=== PATIENT | female | born 1985 | race Caucasian/White ===

== ENCOUNTER 2018-01-25 21:55 | Emergency (ER) | payer SELFPAY ==
[2018-01-25] MEDS ORDERED: ENOXAPARIN SODIUM INJ 120 MG/0.8 ML DISP.SYRIN SUBCUT ONE (23:00)
--- NOTE | 2018-01-25 23:04 | ER Document Report ---
ED Extremity Problem, Lower - General Chief Complaint: Feet Swelling Stated Complaint: SWOLLEN L FOOT Time Seen by Provider: 01/25/18 22:54 Notes: Patient is a 32 year old female that comes to the ED for chief complaint of left leg and foot swelling. She states her left calf feels very tight. She states that she just got back from a 9 hour car ride about 4 days ago, she has never had a DVT in the past, she denies any injury to the area. She is on Depo- Provera shot, not on estrogen. She denies smoking. She denies personal or family history of DVT. TRAVEL OUTSIDE OF THE [place] IN LAST 30 DAYS: No - Related Data Allergies/Adverse Reactions: ibuprofen [Ibuprofen] Allergy (Verified 03/31/16 23:26) acetaminophen [From Percocet] Adverse Reaction (Verified 03/31/16 23:26) oxycodone HCl [From Percocet] Adverse Reaction (Verified 03/31/16 23:26) Past Medical History - General Information source: Patient - Social History Smoking Status: Former Smoker Chew tobacco use (# tins/day): No Frequency of alcohol use: None Drug Abuse: None Lives with: Family Family History: Hyperlipidemia, Hypertension, Malignancy, Thyroid Disfunction Patient has suicidal ideation: No Patient has homicidal ideation: No - Past Medical History Cardiac Medical History: Reports: Hx Hypercholesterolemia Pulmonary Medical History: Reports: Hx Asthma, Hx Bronchitis Neurological Medical History: Reports: Hx Migraine Renal/ Medical History: Reports: Hx Kidney Stones. Denies: Hx Peritoneal Dialysis Malignancy Medical History: Reports: Hx Cervical Cancer - Patient states, Hx Ovarian Cancer - Patient states Musculoskeltal Medical History: Reports Hx Musculoskeletal Deformity, Reports Hx Musculoskeletal Trauma Psychiatric Medical History: Reports: Hx Anxiety, Hx Bipolar Disorder, Hx Borderline Personality Disorder, Hx Depression, Hx Obsessive Compulsive Disorder Traumatic Medical History: Reports: Hx Fractures Surgical Hx: Negative - Immunizations Immunizations up to date: Yes Hx Diphtheria, Pertussis, Tetanus Vaccination: Yes Review of Systems - Review of Systems Constitutional: No symptoms reported EENT: No symptoms reported Cardiovascular: See HPI Respiratory: No symptoms reported Gastrointestinal: No symptoms reported Genitourinary: No symptoms reported Female Genitourinary: No symptoms reported Musculoskeletal: See HPI Skin: No symptoms reported Hematologic/Lymphatic: See HPI Neurological/Psychological: No symptoms reported Physical Exam - Vital signs Vitals: Temp Pulse Resp BP Pulse Ox 98.2 F 85 18 135/82 H 99 01/25/18 22:28 01/25/18 22:28 01/25/18 22:28 01/25/18 22:28 01/25/18 22:28 Interpretation: Normal - General General appearance: Appears well, Alert - HEENT Head: Normocephalic, Atraumatic Eyes: Normal Pupils: PERRL - Respiratory Respiratory status: No respiratory distress Chest status: Nontender Breath sounds: Normal Chest palpation: Normal - Cardiovascular Rhythm: Regular Heart sounds: Normal auscultation Murmur: No - Abdominal Inspection: Normal Distension: No distension Bowel sounds: Normal Tenderness: Nontender Organomegaly: No organomegaly - Back Back: Normal, Nontender - Extremities General upper extremity: Normal inspection, Nontender, Normal color, Normal ROM , Normal temperature General lower extremity: Other - Patient with tight calf, edema of the foot and ankle, this is on the left side exclusively. No erythema, no induration, normal distal neurovascular exam. - Neurological Neuro grossly intact: Yes Cognition: Normal Orientation: AAOx4 Margarita Coma Scale Eye Opening: Spontaneous Margarita Coma Scale Verbal: Oriented [place] Coma Scale Motor: Obeys Commands [place] Coma Scale Total: 15 Speech: Normal Motor strength normal: LUE, RUE, LLE, RLE Sensory: Normal - Psychological Associated symptoms: Normal affect, Normal mood - Skin Skin Temperature: Warm Skin Moisture: Dry Skin Color: Normal Course - Re-evaluation Re-evalutation: Patient's recent travel and her physical examination are suggestive of a DVT. We do not have Doppler ultrasound available at this time a night to evaluate the leg. After apologized to the patient, explained options, decision was made to give her a dose of Lovenox, have her follow-up tomorrow with a prescription to have a Doppler performed, discussed expectations and return precautions. Patient states understanding and agreement with plan. - Vital Signs Vital signs: Temp Pulse Resp BP Pulse Ox 98.0 F 82 18 135/80 H 96 01/25/18 23:02 01/25/18 23:02 01/25/18 23:02 01/25/18 23:02 01/25/18 23:02 Discharge - Discharge Clinical Impression: Left leg swelling Condition: Stable Disposition: HOME, SELF-CARE Additional Instructions: Your exam is concerning for possible blood clot in your leg. You have begun treatment for this tonight, please follow-up tomorrow to have the Doppler venous ultrasound to confirm this diagnosis. See the form, call the number to get your time to get the test done. Return for any concerning symptoms including severe pain, fever, redness, or any other concerning symptoms. Forms: Follow-Up Outpatient Testing
[2018-01-25 23:14] VITALS: BP 135/80
== END 2018-01-25 23:12 | disposition home or self-care (01) ==
LOC: ER 21:55
DX: M79.89 Other specified soft tissue disorders (principal); Z87.891 Personal history of nicotine dependence; J44.9 Chronic obstructive pulmonary disease, unspecified
CPT/HCPCS: 99283; 96372; J1650

== ENCOUNTER → 2018-01-26 | Outpatient (CLI) | payer SELFPAY ==
--- NOTE | 2018-01-26 15:07 | RADIOLOGY REPORT (SQ) ---
EXAM DESCRIPTION: VENOUS UNILATERAL LOWER COMPLETED DATE/TIME: 01/26/2018 2:51 pm REASON FOR STUDY: LLE SWELLING R22.42 LOCALIZED SWELLING, MASS AND LUMP, LEFT LOWER LIMB COMPARISON: None. TECHNIQUE: Dynamic and static alvarado scale and color images acquired of the left leg venous system. Se lected spectral images acquired with additional compression and augmentation maneuvers. The contralat eral common femoral vein and saphenofemoral junction were also imaged. Images stored on PACS. LIMITATIONS: None. FINDINGS: LEFT COMMON FEMORAL: Normal phasicity, compression and augmentation. No visualized echogenic material on g ray scale. No defects on color images. FEMORAL: Normal compression and augmentation. No visualized echogenic material on alvarado scale. No defe cts on color images. POPLITEAL: Normal compression, augmentation. No visualized echogenic material on alvarado scale. No defec ts on color images. CALF VESSELS: Normal compression, augmentation. No visualized echogenic material on alvarado scale. No de fects on color images. GSV and SSV: Normal compression, augmentation. No visualized echogenic material on alvarado scale. No def ects on color images. ANY DEEP VENOUS INSUFFICIENCY: Not evaluated. ANY EVIDENCE OF POPLITEAL CYST: No. OTHER: No other significant finding. RIGHT COMMON FEMORAL VEIN AND SAPHENOFEMORAL JUNCTION: Normal phasicity, compression and augmentation. No visualized echogenic material on alvarado scale. No de fects on color images. IMPRESSION: NO EVIDENCE OF DVT OR SVT IN THE LEFT LEG. TECHNICAL DOCUMENTATION: JOB ID: [id number] [employer]- All Rights Reserved Reading location - IP/workstation name: [facility]
== END ==
LOC: SP 13:59
DX: R22.42 Localized swelling, mass and lump, left lower limb (principal)
CPT/HCPCS: 93971

== ENCOUNTER 2020-07-17 11:02 | Emergency (ER) | payer SELFPAY ==
[2020-07-17] MEDS ORDERED: ONDANSETRON 4 MG TAB.RAPDIS PO ONE (11:55)
--- NOTE | 2020-07-17 12:37 | ER Document Report ---
ED Flu Like - General Chief Complaint: Flu Symptoms Stated Complaint: VOMITING,SORE THROAT,HEADACHE Time Seen by Provider: 07/17/20 11:32 Notes: CHIEF COMPLAINT: Flulike symptoms for 1 day HPI: 34-year-old female presenting with flulike symptoms for 1 day. Has had nasal congestion slight dry cough and 2-3 episodes of vomiting since last night. Patient's employer tested positive for COVID this week. No fever no abdominal pain. 1-2 episodes of loose stools ROS: See HPI - all other systems were reviewed and are otherwise negative Constitutional: no fever Eyes: no drainage, no blurred vision ENT: no runny nose, no sore throat Cardiovascular: no chest pain Resp: no SOB, positive cough GI: Positive vomiting, positive diarrhea, no abdominal pain : no dysuria Integumentary: no rash Allergy: no hives Musculoskeletal: no extremity pain or swelling Neurological: no numbness/tingling, no weakness MEDICATIONS: I agree with the patient medications as charted by the RN. ALLERGIES: I agree with the allergies as charted by the RN. PAST MEDICAL HISTORY/PAST SURGICAL HISTORY: Reviewed and agree as charted by RN. SOCIAL HISTORY: Reviewed and agree as charted by RN. FAMILY HISTORY: No significant familial comorbid conditions directly related to patient complaint EXAM: Reviewed vital signs as charted by RN. CONSTITUTIONAL: Alert and oriented and responds appropriately to questions. Well-appearing; well-nourished HEAD: Normocephalic; atraumatic EYES: PERRL; Conjunctivae clear, sclerae non-icteric ENT: normal nose; no rhinorrhea; moist mucous membranes; pharynx without lesions noted, no uvula edema or deviation, no tonsillar hypertrophy, phonation normal NECK: Supple without meningismus; non-tender; no cervical lymphadenopathy, no masses CARD: RRR; no murmurs, no clicks, no rubs, no gallops; symmetric distal pulses RESP: Normal chest excursion without splinting or tachypnea; breath sounds clear and equal bilaterally; no wheezes, no rhonchi, no rales, pulse oximetry 99% on room air not hypoxic ABD/GI: Morbidly obese, normal bowel sounds; non-distended; soft, non-tender, no rebound, no guarding; no palpable organomegaly or masses. BACK: The back appears normal and is non-tender to palpation, there is no CVA tenderness EXT: Normal ROM in all joints; non-tender to palpation; no cyanosis, no effusions, no edema SKIN: Normal color for age and race; warm; dry; good turgor; no acute lesions noted NEURO: Moves all extremities equally; Motor and sensory function intact PSYCH: The patient's mood and manner are appropriate. Grooming and personal hygiene are appropriate. MDM: 34-year-old female presenting for flulike illness, runny nose slight cough some vomiting and some diarrhea. Has no abdominal pain on exam not hypoxic. Positive exposure for COVID-19 at work. Will send COVID test. Flu test. Give Zofran for nausea. Patient will be a person under investigation for COVID-19 pending results self quarantine at home TRAVEL OUTSIDE OF THE [place] IN LAST 30 DAYS: No - Related Data Allergies/Adverse Reactions: ibuprofen [Ibuprofen] Allergy (Verified 07/17/20 11:47) acetaminophen [From Percocet] Adverse Reaction (Verified 07/17/20 11:47) oxycodone HCl [From Percocet] Adverse Reaction (Verified 07/17/20 11:47) Past Medical History - Social History Smoking Status: Current Some Day Smoker Frequency of alcohol use: Occasional Drug Abuse: Marijuana Family History: Hyperlipidemia, Hypertension, Malignancy, Thyroid Disfunction Patient has homicidal ideation: No - Past Medical History Cardiac Medical History: Reports: Hx Hypercholesterolemia Pulmonary Medical History: Reports: Hx Asthma, Hx Bronchitis Neurological Medical History: Reports: Hx Migraine Renal/ Medical History: Reports: Hx Kidney Stones. Denies: Hx Peritoneal Dialysis Malignancy Medical History: Reports: Hx Cervical Cancer - Patient states, Hx Ova angelo Cancer - Patient states Musculoskeletal Medical History: Reports Hx Musculoskeletal Deformity, Reports Hx Musculoskeletal Trauma Psychiatric Medical History: Reports: Hx Anxiety, Hx Bipolar Disorder, Hx Borderline Personality Disorder, Hx Depression, Hx Obsessive Compulsive Disorder Traumatic Medical History: Reports: Hx Fractures - Immunizations Immunizations up to date: Yes Hx Diphtheria, Pertussis, Tetanus Vaccination: Yes Course - Re-evaluation Re-evalutation: 07/17/20 13:46 Flu test is negative will discharge home is person under investigation for COVID-19 self quarantine at home pending test results Discharge - Discharge Clinical Impression: Person under investigation for COVID-19, Vomiting and diarrhea Condition: Stable Disposition: HOME, SELF-CARE Instructions: COVID-19 Guidance for Persons Under Investigation Additional Instructions: You are considered a person under investigation for COVID-19 at this time self quarantine at home pending your results. These may take 2 to 5 days and you may receive an email or phone call about your results. Follow-up with your primary care provider for reevaluation of symptoms of they persist but if they worsen return for reevaluation. Your influenza test today was negative Prescriptions: Ondansetron [Zofran Odt 4 mg Tablet] 1 - 2 tab PO Q4H PRN #15 tab.rapdis PRN Reason: For Nausea/Vomiting Forms: Return to Work Referrals: CADE PARNELL MD [ACTIVE STAFF] - Follow up as needed
[2020-07-17 13:21] LABS: A TYPE INFLUENZA AG NEGATIVE (NEGATIVE); B INFLUENZA AG NEGATIVE (NEGATIVE)
[2020-07-17 14:11] VITALS: BP 128/76
== END 2020-07-17 14:10 | disposition home or self-care (01) ==
LOC: ER 11:02
DX: R11.10 Vomiting, unspecified (principal); R19.7 Diarrhea, unspecified; R51 Headache; J02.9 Acute pharyngitis, unspecified; Z20.828 Contact with and (suspected) exposure to other viral communicable diseases; F17.200 Nicotine dependence, unspecified, uncomplicated; E78.00 Pure hypercholesterolemia, unspecified; Z87.442 Personal history of urinary calculi
CPT/HCPCS: 99283; 87635; 87804; S0119; C9803

== ENCOUNTER 2020-08-19 01:53 | Emergency (ER) | payer SELFPAY ==
[2020-08-19] MEDS ORDERED: ACETAMINOPHEN 325 MG TABLET PO ONE (05:11)
[2020-08-19] MEDS ORDERED: LIDOCAINE 2% VISCOUS SOLN 15 ML UDCUP PO ONE (05:12)
[2020-08-19 05:35] LABS: APPEARANCE,URINE SLIGHTLY-CLOUDY; BILIRUBIN,URINE NEGATIVE (NEGATIVE); COLOR,URINE YELLOW; GLUCOSE, URINE NEGATIVE (NEGATIVE); KETONES,URINE NEGATIVE (NEGATIVE); PROTEIN,URINE NEGATIVE (NEGATIVE); URINE SPECIFIC GRAVITY 1.008; UROBILINOGEN,URINE NEGATIVE mg/dL (<2.0)
--- NOTE | 2020-08-19 05:38 | ER Document Report ---
ED General - General Chief Complaint: Flu Symptoms Stated Complaint: SORE THROAT Notes: 34-year-old female with no significant past medical history presents with approximately 4 days of mild aching in muscles, malaise, productive nonbloody cough, sore throat. Patient had significant contact with past who had COVID-19 infection recently. Patient denies any chest pain, shortness of breath, immune compromise history, vomiting or diarrhea, abdominal pain, flank pain TRAVEL OUTSIDE OF THE [place] IN LAST 30 DAYS: No - Related Data Allergies/Adverse Reactions: ibuprofen [Ibuprofen] Allergy (Verified 07/17/20 11:47) acetaminophen [From Percocet] Adverse Reaction (Verified 07/17/20 11:47) oxycodone HCl [From Percocet] Adverse Reaction (Verified 07/17/20 11:47) Home Medications: propranolol, zoloft, abilify Past Medical History - General Information source: Patient - Social History Smoking Status: Current Every Day Smoker Family History: Hyperlipidemia, Hypertension, Malignancy, Thyroid Disfunction - Past Medical History Cardiac Medical History: Reports: Hx Hypercholesterolemia Pulmonary Medical History: Reports: Hx Asthma, Hx Bronchitis Neurological Medical History: Reports: Hx Migraine Renal/ Medical History: Reports: Hx Kidney Stones. Denies: Hx Peritoneal Dialysis Malignancy Medical History: Reports: Hx Cervical Cancer - Patient states, Hx Ovarian Cancer - Patient states Musculoskeletal Medical History: Reports Hx Musculoskeletal Deformity, Reports Hx Musculoskeletal Trauma Psychiatric Medical History: Reports: Hx Anxiety, Hx Bipolar Disorder, Hx Borderline Personality Disorder, Hx Depression, Hx Obsessive Compulsive Disorder Traumatic Medical History: Reports: Hx Fractures Past Surgical History: Reports: Hx Tubal Ligation - Immunizations Immunizations up to date: Yes Hx Diphtheria, Pertussis, Tetanus Vaccination: Yes Review of Systems - Review of Systems Notes: REVIEW OF SYSTEMS: CONSTITUTIONAL : Denies fever, chills, or sweats. EENT: Denies recent cold/sinus symptoms, + throat pain CARDIOVASCULAR: Denies chest pain, TONY RESPIRATORY: + cough, denies shortness of breath. GASTROINTESTINAL: Denies abdominal pain, nausea/vomiting. GENITOURINARY: Denies difficulty urinating, +painful urination. FEMALE GENITOURINARY: Denies abnormal vaginal bleeding, vaginal discharge. MUSCULOSKELETAL: Denies neck pain, back pain. SKIN: Denies rash or skin lesions. HEMATOLOGIC : Denies easy bruising or bleeding. LYMPHATIC: Denies swollen, enlarged glands. NEUROLOGICAL: Denies headache, denies change in gait. PSYCHIATRIC: Denies anxiety or stress or depression. Physical Exam - Vital signs Vitals: Temp Pulse Resp BP Pulse Ox 98.0 F 78 18 116/74 96 08/19/20 02:05 08/19/20 02:05 08/19/20 02:05 08/19/20 02:05 08/19/20 02:05 - Notes Notes: PHYSICAL EXAMINATION: GENERAL: Well-appearing, well-nourished and in no acute distress. HEAD: Atraumatic, normocephalic. EYES: Pupils equal round and appropriate constriction, sclera anicteric, conjunctiva are normal. ENT: nares patent, moist mucous membranes, mild oropharyngeal erythema, no tonsillar edema or exudates NECK: Normal range of motion, supple without lymphadenopathy LUNGS: Breath sounds clear to auscultation bilaterally and equal. No wheezes rales or rhonchi. Normal respiratory rate and effort HEART: Regular rate and rhythm without murmurs ABDOMEN: Soft, nontender, no guarding, no masses, no CVAT EXTREMITIES: Normal range of motion, no pitting or edema. No cyanosis. NEUROLOGICAL: Awake, alert, conversing appropriately, moves all extremities spontaneously. PSYCH: Normal mood, normal affect. SKIN: Warm, Dry, normal turgor, no rashes or lesions noted. Course - Re-evaluation Re-evalutation: 08/19/20 07:17 Mild COVID-19 versus flu symptoms, no indication for rapid strep with presence of cough, absence of fever, absence of exudates, and patient's age. Patient complains of mild dysuria and frequency over the past few days, denies any other urinary symptoms and no vaginal symptoms. No emergent findings on work-up, patient feels well, tolerating p.o., no signs of any COVID-19 complications, urine only with microscopic hematuria with very mild urinary symptoms, no indication to treat for UTI. Patient ready for discharge with supportive care, given return to ED precautions which she demonstrated understanding of. The patient was evaluated during the global COVID-19 pandemic and that diagnosis was suspected/considered upon their initial presentation. Their evaluation, treatment and testing was consistent with current guidelines for patients who present with complaints or symptoms that may be related to COVID-19. - Vital Signs Vital signs: Temp Pulse Resp BP Pulse Ox 98 F 82 18 116/74 96 08/19/20 02:23 08/19/20 02:23 08/19/20 02:23 08/19/20 02:23 08/19/20 02:23 - Laboratory Laboratory results interpreted by me: 08/19/20 05:17 Urine Blood SMALL H Discharge - Discharge Clinical Impression: Viral syndrome Disposition: HOME, SELF-CARE Additional Instructions: Return to the emergency department if you have any worsening symptoms, difficulty breathing, dizziness, fainting, inability to keep down liquids by mouth, or any other worsening or alarming symptoms. Follow-up with your primary doctor in 1 week. You had a small amount of blood in your urine, discussed this with your primary doctor when you follow up. Patient was provided with discharge information including: As a person under investigation for Covid 19, the [place] department of Health and Human Services, division of public health advises you to adhere to the following guidance until your test results are reported to you. If your test result is positive, you will receive additional information from your provider and your local health department at that time. Remain at home until you are cleared by the health provider or public health authorities. Keep a log of visitors to your home, notify any visitors to your home of your isolation status. If you plan to move to a new address or leave the [facility], notify the local health department in your County. Call your doctor or seek care if you have an urgent medical need. Before seeking medical care, call ahead to get instructions from the provider before arriving at the medical office clinic or hospital. Notify them that you are being tested for the virus that causes Covid 19 so that arrangements can be made, as necessary, to prevent transmission to others in the healthcare setting. Next, notify the local health department in your county. If a medical emergency arises and you need to call 911, inform the first responders that you are being tested for the virus that causes Covid 19. Next, notify the local health department in your county. Prescriptions: Benzonatate [Tessalon Perles 100 mg Capsule] 100 mg PO Q8HP PRN #15 capsule PRN Reason: Cough
--- NOTE | 2020-08-19 06:08 | RADIOLOGY REPORT (SQ) ---
CHEST X-RAY 1 VIEW on 08/19/2020 at 5:45 AM CLINICAL INDICATION: Cough COMPARISON: 04/03/2016 FINDINGS: The lungs are clear. Cardiac, hilar and mediastinal contours are within normal limits. Pulmonary vascularity is within normal limits. No bony abnormality is noted. IMPRESSION: No active disease.
[2020-08-19 06:15] LABS: A TYPE INFLUENZA AG NEGATIVE (NEGATIVE); B INFLUENZA AG NEGATIVE (NEGATIVE)
[2020-08-19 07:33] VITALS: BP 131/78
== END 2020-08-19 07:31 | disposition home or self-care (01) ==
LOC: ER 01:53
DX: B34.9 Viral infection, unspecified (principal); J02.9 Acute pharyngitis, unspecified; M79.10 Myalgia, unspecified site; R53.81 Other malaise; R05 Cough; Z20.828 Contact with and (suspected) exposure to other viral communicable diseases; Z88.8 Allergy status to other drugs, medicaments and biological substances; F17.200 Nicotine dependence, unspecified, uncomplicated
CPT/HCPCS: 99284; 87635; 81025; 81001; 87804; 71045; J3490; C9803

== ENCOUNTER 2020-09-26 10:47 | Emergency (ER) | payer SELFPAY ==
--- NOTE | 2020-09-26 11:21 | ER Document Report ---
ED Medical Screen (RME) - General Chief Complaint: Feet Swelling Stated Complaint: FEET PAIN,SWELLING Time Seen by Provider: 09/26/20 11:12 TRAVEL OUTSIDE OF THE [place] IN LAST 30 DAYS: No - HPI Notes: Patient is a 34-year-old female with no medical problems who presents with bilateral feet swelling that began yesterday. Patient states they are tender but is able to ambulate without difficulty. She denies any chest pain or shortness of breath. She is a current everyday smoker. - Related Data Allergies/Adverse Reactions: ibuprofen [Ibuprofen] Allergy (Verified 09/26/20 11:07) Anaphylaxis quetiapine [From Seroquel] Allergy (Verified 09/26/20 11:07) Anaphylaxis oxycodone HCl [From Percocet] Adverse Reaction (Verified 09/26/20 11:07) Vomiting Home Medications: abilify, zoloft, propanolol Past Medical History - Social History Chew tobacco use (# tins/day): No Frequency of alcohol use: None Drug Abuse: None - Past Medical History Cardiac Medical History: Reports: Hx Hypercholesterolemia Pulmonary Medical History: Reports: Hx Asthma, Hx Bronchitis Neurological Medical History: Reports: Hx Migraine Renal/ Medical History: Reports: Hx Kidney Stones. Denies: Hx Peritoneal Dialysis Malignancy Medical History: Reports: Hx Cervical Cancer - Patient states, Hx Ovarian Cancer - Patient states Musculoskeltal Medical History: Reports Hx Musculoskeletal Deformity, Reports Hx Musculoskeletal Trauma Psychiatric Medical History: Reports: Hx Anxiety, Hx Bipolar Disorder, Hx Borderline Personality Disorder, Hx Depression, Hx Obsessive Compulsive Disorder Traumatic Medical History: Reports: Hx Fractures Past Surgical History: Reports: Hx Tubal Ligation - Immunizations Immunizations up to date: Yes Hx Diphtheria, Pertussis, Tetanus Vaccination: Yes Physical Exam - Vital signs Vitals: Temp Pulse Resp BP Pulse Ox 98.7 F 94 20 147/71 H 100 09/26/20 10:57 09/26/20 10:57 09/26/20 10:57 09/26/20 10:57 09/26/20 10:57 - Cardiovascular Pulses: Normal: Posterior tibial, Dorsalis pedis - Extremities Foot: Edema. No: Ecchymosis - no erythema Course - Re-evaluation Re-evalutation: I have greeted and performed a rapid initial assessment of this patient. A comprehensive ED assessment and evaluation of the patient, analysis of test results and completion of medical decision making process will be conducted by an additional ED providers. - Vital Signs Vital signs: Temp Pulse Resp BP Pulse Ox 98.7 F 94 20 147/71 H 100 09/26/20 10:57 09/26/20 10:57 09/26/20 10:57 09/26/20 10:57 09/26/20 10:57
--- NOTE | 2020-09-26 11:35 | ER Document Report ---
ED General - General Chief Complaint: Feet Swelling Stated Complaint: FEET PAIN,SWELLING Time Seen by Provider: 09/26/20 11:12 Mode of Arrival: Ambulatory Information source: Patient Notes: Bilateral swelling of the feet since yesterday. Has little bit of pain on the dorsum of the left foot. Denies any pain or swelling in her calves. No history of venous thromboembolic disorders. Denies any fever or chills. No unusual activity. Cannot think of any dietary indiscretions that might of caused this. Complains of a little bit of exertional dyspnea. No history of congestive heart failure. No history of any congenital heart lesions. Otherwise in her usual state of health. TRAVEL OUTSIDE OF THE [place] IN LAST 30 DAYS: No - Related Data Allergies/Adverse Reactions: ibuprofen [Ibuprofen] Allergy (Verified 09/26/20 11:07) Anaphylaxis quetiapine [From Seroquel] Allergy (Verified 09/26/20 11:07) Anaphylaxis oxycodone HCl [From Percocet] Adverse Reaction (Verified 09/26/20 11:07) Vomiting Home Medications: abilify, zoloft, propanolol Past Medical History - General Information source: Patient - Social History Smoking Status: Current Every Day Smoker Chew tobacco use (# tins/day): No Frequency of alcohol use: None Drug Abuse: None Family History: Hyperlipidemia, Hypertension, Malignancy, Thyroid Disfunction - Medical History Notes: Past medical history is reviewed as documented. - Past Medical History Cardiac Medical History: Reports: Hx Hypercholesterolemia Pulmonary Medical History: Reports: Hx Asthma, Hx Bronchitis Neurological Medical History: Reports: Hx Migraine Renal/ Medical History: Reports: Hx Kidney Stones. Denies: Hx Peritoneal Dialysis Malignancy Medical History: Reports: Hx Cervical Cancer - Patient states, Hx Ovarian Cancer - Patient states Musculoskeletal Medical History: Reports Hx Musculoskeletal Deformity, Reports Hx Musculoskeletal Trauma Psychiatric Medical History: Reports: Hx Anxiety, Hx Bipolar Disorder, Hx B orderline Personality Disorder, Hx Depression, Hx Obsessive Compulsive Disorder Traumatic Medical History: Reports: Hx Fractures Past Surgical History: Reports: Hx Tubal Ligation - Immunizations Immunizations up to date: Yes Hx Diphtheria, Pertussis, Tetanus Vaccination: Yes Review of Systems - Review of Systems Notes: All other systems are reviewed and are negative or noncontributory except as noted in the present illness. Physical Exam - Vital signs Vitals: Temp Pulse Resp BP Pulse Ox 98.7 F 94 20 147/71 H 100 09/26/20 10:57 09/26/20 10:57 09/26/20 10:57 09/26/20 10:57 09/26/20 10:57 - Notes Notes: General: Well-developed moderately obese female no acute distress. Vital signs and nursing chief complaint are reviewed. Lungs: Clear to auscultation. Heart: Regular rate and rhythm no murmur. Abdomen: Soft nontender. No masses or organomegaly. Extremities: Bilateral 2+ edema to the mid tibia. No overlying erythema or cellulitis. No real tenderness to palpation. Negative Homans' sign bilaterally. Neuro: Normal sensation to light touch in both lower extremities. Course - Re-evaluation Re-evalutation: 09/26/20 14:26 Patient rested comfortably throughout her stay. The first D-dimer drawn was reported back as quantity not sufficient. A repeat draw was done. This added about an hour and a half to the patient's visit. Ultimately the D-dimer came back negative. Her proBNP and chest x-ray were fine as were her EKG and the rest of her labs. I think this is probably just dependent edema from fluid retention. I would treat her symptomatically with a low-dose of hydrochlorothiazide for 14 days and have her follow-up with primary care if not improved. - Vital Signs Vital signs: Temp Pulse Resp BP Pulse Ox 98.6 F 85 16 127/79 H 97 09/26/20 14:59 09/26/20 14:59 09/26/20 14:59 09/26/20 14:59 09/26/20 14:59 - Laboratory Result Diagrams: 09/26/20 11:25 09/26/20 11:25 Laboratory results interpreted by me: 09/26/20 09/26/20 09/26/20 11:25 11:25 11:25 WBC 11.7 H RDW 16.4 H Absolute Neuts (auto) 8.3 H AST 49 H ALT 38 H Urine Urobilinogen 4.0 H Ur Leukocyte Esterase TRACE H - EKG Interpretation by Me EKG shows normal: Sinus rhythm, [place], Intervals, QRS Complexes, ST-T Waves Discharge - Discharge Clinical Impression: Peripheral edema Condition: Good Disposition: HOME, SELF-CARE Instructions: Edema, Peripheral ([facility]) Additional Instructions: Limit your salt intake as much as possible. Take a potassium containing food at least once a day. Examples are bananas, raisins, evans flavored yogurt, or tomato soup. Follow-up with primary care provider of choice if things are not improving. Return to the emergency department if any concerning symptoms develop. Prescriptions: Hydrochlorothiazide [Hydrodiuril 25 mg Tablet] 12.5 mg PO QAM #14 tablet Forms: Return to Work
[2020-09-26 11:54] LABS: ABSOLUTE EOSINOPHILS # (AUTO) 0.1 10^3/uL (0.0-0.6); ABSOLUTE LYMPHOCYTES (AUTO) 2.4 10^3/uL (0.5-4.7); ABSOLUTE MONOCYTES (AUTO) 0.8 10^3/uL (0.1-1.4); ABSOLUTE NEUT (AUTO) 8.3 10^3/uL (1.7-8.2); BASOPHILS % (AUTO) 0.4 % (0-2); EOSINOPHILS % (AUTO) 0.7 % (0-6); HEMATOCRIT 39.5 % (36.0-47.0); LYMPHOCYTES % (AUTO) 20.5 % (13-45); MEAN CORPUSCULAR HEMOGLOBIN 27.1 pg (27.0-33.4); MEAN CORPUSCULAR VOLUME 82 fl (80-97); PLATELET COUNT 300 10^3/uL (150-450); RED CELL DISTRIBUTION WIDTH 16.4 % (11.5-14.0); SEGMENTED NEUTROPHILS % (AUTO) 71.4 % (42-78); TOTAL CELLS COUNTED % (AUTO) 100 %; WHITE BLOOD COUNT 11.7 10^3/uL (4.0-10.5)
[2020-09-26 11:58] LABS: APPEARANCE,URINE CLOUDY; BILIRUBIN,URINE NEGATIVE (NEGATIVE); COLOR,URINE YELLOW; GLUCOSE, URINE NEGATIVE (NEGATIVE); KETONES,URINE NEGATIVE (NEGATIVE); LEUKOCYTE ESTERASE,URINE TRACE (NEGATIVE); NITRITE,URINE NEGATIVE (NEGATIVE); PROTEIN,URINE NEGATIVE (NEGATIVE); URINE SPECIFIC GRAVITY 1.023
[2020-09-26 12:12] LABS: ALBUMIN 4.4 g/dL (3.5-5.0); ALKALINE PHOSPHATASE 81 U/L (38-126); ASPARTATE AMINO TRANSFERASE 49 U/L (14-36); BILIRUBIN,DIRECT 0.1 mg/dL (0.0-0.4); BILIRUBIN,TOTAL 0.6 mg/dL (0.2-1.3); BLOOD UREA NITROGEN 10 mg/dL (7-20); CALCIUM 9.6 mg/dL (8.4-10.2); CARBON DIOXIDE 29 mmol/L (22-30); CHLORIDE 104 mmol/L (98-107); GLUCOSE 101 mg/dL (75-110); POTASSIUM 4.5 mmol/L (3.6-5.0); TOTAL PROTEIN 7.7 g/dL (6.3-8.2)
[2020-09-26 12:21] LABS: ANION GAP 5 (5-19)
--- NOTE | 2020-09-26 12:40 | RADIOLOGY REPORT (SQ) ---
EXAM DESCRIPTION: CHEST 2 VIEWS IMAGES COMPLETED DATE/TIME: 09/26/2020 12:19 pm REASON FOR STUDY: Dyspnea COMPARISON: 08/19/2020 EXAM PARAMETERS: NUMBER OF VIEWS: two views TECHNIQUE: Digital Frontal and Lateral radiographic views of the chest acquired. RADIATION DOSE: NA LIMITATIONS: none FINDINGS: LUNGS AND PLEURA: No opacities, masses or pneumothorax. No pleural effusion. MEDIASTINUM AND HILAR STRUCTURES: No masses or contour abnormalities. HEART AND VASCULAR STRUCTURES: Heart normal size. No evidence for failure. BONES: No acute findings. HARDWARE: None in the chest. OTHER: No other significant finding. IMPRESSION: NO ACUTE RADIOGRAPHIC FINDING IN THE CHEST. TECHNICAL DOCUMENTATION: JOB ID: [id number] 2010 [employer]- All Rights Reserved Reading location - IP/workstation name: [email or web address]
[2020-09-26 15:02] VITALS: BP 127/79
--- NOTE | 2020-09-26 17:50 | EKG REPORT ---
SEVERITY:- NORMAL ECG - SINUS RHYTHM : Confirmed by: Nash Rosario MD 26-Sep-2020 17:49:56
== END 2020-09-26 14:59 | disposition home or self-care (01) ==
LOC: ER 10:47
DX: R60.0 Localized edema (principal); E66.9 Obesity, unspecified; Z88.8 Allergy status to other drugs, medicaments and biological substances; F17.200 Nicotine dependence, unspecified, uncomplicated; Z79.899 Other long term (current) drug therapy
CPT/HCPCS: 36415; 71046; 80053; 81001; 83880; 85025; 85379; 93005; 93010; 99285